=== PATIENT | female | born 1965 | race Caucasian/White ===

== ENCOUNTER 2019-08-03 07:44 | Outpatient (CLI) | payer OTHER ==
--- NOTE | 2019-08-03 09:00 | MRI ---
MRI OF THE CERVICAL SPINE WITHOUT CONTRAST: INDICATION: History of neck pain that radiates down the left shoulder with left arm weakness and hand numbness. COMPARISON: Prior MRI cervical spine dated 08/30/2018. FINDINGS: The cerebellar tonsils are peg-like and protrude 1.8 cm below the level of the foramen magnum causing crowding of medulla at the foramen magnum consistent with a [id number] malformation. The 4th philippe tricle appears normal in size. There is a small right mastoid effusion. At C2-C3, there is mild facet joint degenerative change, but no appreciable central canal or neural f oraminal narrowing. At C3-4, there is mild facet joint degenerative change, but no appreciable central canal or neural fo raminal narrowing. At C4-5, there is no appreciable central canal or neural foraminal narrowing. At C5-6, there is a mild broad-based bulge causing mild central canal narrowing and mild ventral effa cement of the spinal cord without cord signal abnormality. No neural foraminal narrowing is evident. At C6-7, there is no appreciable central canal or neural foraminal narrowing. At C7-T1, there is no appreciable central canal or neural foraminal narrowing. At T1-T1, there is no appreciable central canal or neural foraminal narrowing. IMPRESSION: 1. 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 2. Mild central canal narrowing at C5-6 due to a broad-based disk bulge causing mild ventral effacem ent of the spinal cord without cord signal abnormality. 3. No neural foraminal narrowing demonstrated. 4. Nonspecific mild right mastoid effusion. POS: BH
== END 2019-08-03 07:45 | disposition home or self-care (01) ==
LOC: BICMRI 07:44
PROVIDERS: ATTEND Neurological Surgery
DX: M50.122 Cervical disc disorder at C5-C6 level with radiculopathy (principal); M54.2 Cervicalgia; G93.5 Compression of brain
CPT/HCPCS: 72141

== ENCOUNTER 2021-03-18 12:31 | Outpatient (CLI) | payer OTHER | END 2021-03-18 12:32 | disposition home or self-care (01) | LOC: TBSIIMAG 12:31 | PROVIDERS: ATTEND Neurological Surgery | DX: S16.1XXA Strain of muscle, fascia and tendon at neck level, initial encounter (principal); G93.5 Compression of brain | CPT/HCPCS: 72141 ==

== ENCOUNTER 2021-08-06 11:43 | Outpatient (CLI) | payer OTHER ==
[2021-08-06 14:00] LABS: Anion Gap 12 mmol/L (10-20); BUN (Urea Nitrogen) 15 mg/dL (9.8-20.1); Calc. Creatinine Clearance 0 mL/min (70-130); Calcium 9.2 mg/dL (7.8-10.44); Carbon Dioxide 26 mmol/L (22-29); Chloride 107 mmol/L (98-107); Glucose 82 mg/dL (70-105); Potassium 5.2 mmol/L (3.5-5.1); Sodium 140 mmol/L (136-145)
[2021-08-06 14:01] LABS: Mean Corpuscular HGB CONC 33.6 g/dL (32.0-36.0); Mean Corpuscular Hemoglobin 31.4 pg (27.0-33.0); Mean Corpuscular Volume 93.5 fl (81.6-98.3); Mean Platelet Volume 10.7 fl (7.4-10.4); Platelet Count 211 10x3/uL (150-450); RBC Distribution Width 13.8 % (11.5-14.5); Red Blood Cell (RBC) Count 4.14 10x6/uL (3.90-5.03); White Blood Cell (WBC) Count 4.9 10x3/uL (3.5-10.5)
[2021-08-06 23:34] LABS: SARS-CoV-2 PCR by NAA Not Detected (NotDetected)
== END 2021-08-06 11:44 | disposition home or self-care (01) ==
LOC: LABBT 11:43
PROVIDERS: ATTEND Neurological Surgery
DX: Z01.818 Encounter for other preprocedural examination (principal); M54.12 Radiculopathy, cervical region; Z20.822 Contact with and (suspected) exposure to COVID-19
CPT/HCPCS: 80048; 85027; 93005; 93010; U0003; U0005

== ENCOUNTER 2021-09-02 12:42 | Outpatient (CLI) | payer OTHER | END 2021-09-02 12:43 | disposition home or self-care (01) | LOC: TBSIIMAG 12:42 | PROVIDERS: ATTEND Neurological Surgery | DX: M54.12 Radiculopathy, cervical region (principal); Z98.890 Other specified postprocedural states | CPT/HCPCS: 72040 ==

== ENCOUNTER 2021-10-28 12:44 | Outpatient (CLI) | payer BC, OTHER | END 2021-10-28 12:45 | disposition home or self-care (01) | LOC: TBSIIMAG 12:44 | PROVIDERS: ATTEND Physician Assistant | DX: M50.20 Other cervical disc displacement, unspecified cervical region (principal) | CPT/HCPCS: 72040 ==